=== PATIENT | female | born 1965 ===

== ENCOUNTER 2017-07-05 15:54 | Emergency (ER) | payer MEDICAID ==
[2017-07-05 16:04] VITALS: BP 149/77; PULSE 110; RESP 18; TEMP 99.3; O2SAT 98
[2017-07-05] MEDS ORDERED: Naproxen 500 MG TAB PO ONE ×2 (16:14→16:19)
--- NOTE | 2017-07-05 16:33 | ED PDOC ---
Lower Extremity Pain/Injury Time Seen by Provider: 07/05/17 16:05 Chief Complaint (Nursing): Lower Extremity Problem/Injury Chief Complaint (Provider): Left Ankle Pain History Per: Patient History/Exam Limitations: no limitations Onset/Duration Of Symptoms: Hrs Current Symptoms Are (Timing): Still Present Additional Complaint(s): 51 year old female presents to the ED complaining of left ankle pain. The patient states that earlier today she tripped and fell injuring her ankle and the pain has persisted since then. - Ankle/Foot Description Of Injury: Fell Past Medical History Reviewed: Historical Data, Nursing Documentation, Vital Signs Vital Signs: Last Vital Signs Temp 99.3 F 07/05/17 16:00 Pulse 110 H 07/05/17 16:00 Resp 18 07/05/17 16:00 BP 149/77 07/05/17 16:00 Pulse Ox 98 07/05/17 16:00 - Medical History PMH: Anxiety, Arthritis, Back Problems, Depression, Gastritis, HTN, Hypercholesterolemia - Surgical History Surgical History: Back Surgery (x3), Cholecystectomy, - Family History Family History: States: Unknown Family Hx - Living Arrangements Living Arrangements: With Family - Social History Current smoker - smoking cessation education provided: No Ex-Smoker (has not smoked in the last 12 months): No Alcohol: None Drugs: Denies - Immunization History Hx Tetanus Toxoid Vaccination: Yes Hx Influenza Vaccination: No Hx Pneumococcal Vaccination: No - Home Medications Home Medications: Ambulatory Orders Medication Instructions Recorded Aspirin [Ecotrin] 81 mg PO DAILY 12/02/15 ALPRAZolam [Xanax] 1 tab PO PRN PRN 12/27/15 Valsartan [Diovan] 1 tab PO DAILY 12/27/15 Cephalexin [Keflex] 500 mg PO BID #14 capsule 01/12/17 Naproxen [Naprosyn Tab] 375 mg PO BID PRN #20 tab 01/12/17 Omeprazole 1 tab PO DAILY 01/12/17 Paroxetine HCl [Paxil] 1 tab PO DAILY 01/12/17 Sulfamethoxazole/Trimethoprim 1 tab PO BID #14 tab 01/12/17 [Bactrim DS 800 mg-160 mg] - Allergies Allergies/Adverse Reactions: Allergies Allergy/AdvReac Type Severity Reaction Status Date / Time No Known Allergies Allergy Verified 01/12/17 13:24 Review of Systems Musculoskeletal: Positive for: Other (left ankle pain) Physical Exam - Reviewed Nursing Documentation Reviewed: Yes Vital Signs Reviewed: Yes - Physical Exam Appears: Positive for: Non-toxic, No Acute Distress Skin: Positive for: Normal Color, Warm, Dry. Negative for: Rash Pulses-Dorsalis Pedis (L): 2+ Pulses-Dorsalis Pedis (R): 2+ Extremity: Positive for: Tenderness (Mild tenderness on lateral malleolus on left ankle. ), Swelling ( Mild swelling on lateral malleolus on left ankle. ). Negative for: Deformity Neurologic/Psych: Positive for: Alert, Oriented - ECG O2 Sat by Pulse Oximetry: 98 (RA) Pulse Ox Interpretation: Normal - Radiology X-Ray: Interpreted by Me (L ankle x-ray) X-Ray Interpretation: No Acute Disease - Progress ED Course And Treament: Ankle immobilized in aircast splint applied by RN. Crutches provided. Medical Decision Making Medical Decision Makin Initial Impression 51 y/o female presenting with left ankle pain Initial Plan: * Naproxen 500mg PO * RAD Ankle LFT 3 views * Reevaluation Documented by Idalmis Rangel acting as a scribe for Demarcus Whitley PA-C. All medical record entries made by the Scribe were at my direction and personally dictated by me. I have reviewed the chart and agree that the record accurately reflects my personal performance of the history, physical exam, medical decision making, and the department course for this patient. I have also personally directed, reviewed, and agree with the discharge instructions and disposition. Disposition - Clinical Impression Clinical Impression: Ankle injury - Patient ED Disposition Is Patient to be Admitted: No - Disposition Referrals: Podiatry Clinic [Outside] Disposition: Routine/Home Disposition Time: 16:46 Condition: STABLE Instructions: Ankle Sprain (ED), Crutch Instructions (ED), Ankle Stirrup Splint (ED) Forms: [employer] (And[place]ran) Print Language: TAMAZIGHT
--- NOTE | 2017-07-05 17:07 | RAD ---
PROCEDURE: Left Ankle Radiographs. HISTORY: trauma COMPARISON: None FINDINGS: BONES: No acute fracture. JOINTS: Ankle mortise maintained. Talar dome intact SOFT TISSUES: Lateral malleolar soft tissue swelling. OTHER FINDINGS: Small ankle joint effusion. IMPRESSION: Lateral malleolar soft tissue swelling and small ankle joint effusion without demonstrated fracture or dislocation.
== END 2017-07-05 17:30 | disposition home or self-care (01) ==
LOC: H.ER 15:54
DX: S99.912A Unspecified injury of left ankle, initial encounter (principal); W01.0XXA Fall on same level from slipping, tripping and stumbling without subsequent striking against object, initial encounter; E78.00 Pure hypercholesterolemia, unspecified; I10 Essential (primary) hypertension; Z87.891 Personal history of nicotine dependence

== ENCOUNTER 2017-10-27 15:12 | Emergency (ER) | payer MEDICAID ==
[2017-10-27 15:28] VITALS: TEMP 98.1
--- NOTE | 2017-10-27 16:38 | ED PDOC ---
HPI: Hypertension/Hypotension Time Seen by Provider: 10/27/17 16:10 Chief Complaint (Nursing): Palpitations Chief Complaint (Provider): anxiety, palpitations History Per: Patient, Engineering Group Manager History/Exam Limitations: no limitations Onset/Duration Of Symptoms: Intermittent Episodes Current Symptoms Are (Timing): Intermittent Episodes Associated Symptoms: Other (heart racing). denies: Chest Pain, Dyspnea, Dizziness, Blurred Vision, Focal Weakness, Headache Quality Of Symptoms: Rapid Heart Rate Severity: Moderate Exacerbating Factor(s): Pos: None Additional Complaint(s): 52yo female presents w family member states shes been sleepless, noting anxiety and "stress", feelings of palpitations, heart racing, mostly at night. State family stressors of injury and father illness contributing. Denies chest pain, SOB, syncope, headache, orthopnea, swelling or alcohol/drug use. Past Medical History Reviewed: Historical Data, Nursing Documentation, Vital Signs Vital Signs: Last Vital Signs Temp 98.1 F 10/27/17 15:26 Pulse 79 10/27/17 15:58 Resp 18 10/27/17 15:26 BP 151/84 H 10/27/17 15:26 Pulse Ox 99 10/27/17 15:26 - Medical History PMH: Anxiety, Arthritis, Back Problems, Depression, Gastritis, HTN, Hypercholesterolemia - Surgical History Surgical History: Back Surgery (x3), Cholecystectomy, - Family History Family History: States: Unknown Family Hx - Living Arrangements Living Arrangements: With Family - Social History Current smoker - smoking cessation education provided: No Alcohol: None Drugs: Denies - Immunization History Hx Tetanus Toxoid Vaccination: Yes Hx Influenza Vaccination: No Hx Pneumococcal Vaccination: No - Home Medications Home Medications: Ambulatory Orders Medication Instructions Recorded Aspirin [Ecotrin] 81 mg PO DAILY 12/02/15 ALPRAZolam [Xanax] 1 tab PO PRN PRN 12/27/15 Valsartan [Diovan] 1 tab PO DAILY 12/27/15 Cephalexin [Keflex] 500 mg PO BID #14 capsule 01/12/17 Naproxen [Naprosyn Tab] 375 mg PO BID PRN #20 tab 01/12/17 Omeprazole 1 tab PO DAILY 01/12/17 Paroxetine HCl [Paxil] 1 tab PO DAILY 01/12/17 Sulfamethoxazole/Trimethoprim 1 tab PO BID #14 tab 01/12/17 [Bactrim DS 800 mg-160 mg] ALPRAZolam [Xanax] 0.25 mg PO BID PRN #5 tab 10/27/17 - Allergies Allergies/Adverse Reactions: Allergies Allergy/AdvReac Type Severity Reaction Status Date / Time No Known Allergies Allergy Verified 01/12/17 13:24 Review of Systems ROS Statement: Except As Marked, All Systems Reviewed And Found Negative Constitutional: Negative for: Fever, Sweats Cardiovascular: Positive for: Palpitations. Negative for: Chest Pain, Orthopnea , Paroxysmal Noc. Dyspnea Respiratory: Negative for: Cough Gastrointestinal: Negative for: Nausea, Abdominal Pain Genitourinary Female: Negative for: Dysuria Musculoskeletal: Negative for: Neck Pain Skin: Negative for: Rash Neurological: Negative for: Weakness, Numbness, Seizures, Headache, Dizziness Psych: Negative for: Anxiety Physical Exam - Reviewed Nursing Documentation Reviewed: Yes Vital Signs Reviewed: Yes - Physical Exam Appears: Positive for: Well, Non-toxic, No Acute Distress Head Exam: Positive for: ATRAUMATIC, NORMAL INSPECTION, NORMOCEPHALIC Skin: Positive for: Normal Color, Warm, DRY Eye Exam: Positive for: EOMI, Normal appearance, PERRL ENT: Positive for: Normal ENT Inspection Neck: Positive for: Normal, Painless ROM Cardiovascular/Chest: Positive for: Regular Rate, Rhythm Respiratory: Positive for: CNT, Normal Breath Sounds Gastrointestinal/Abdominal: Positive for: Normal Exam, Soft. Negative for: Tenderness Back: Positive for: Normal Inspection Extremity: Positive for: Normal ROM Neurologic/Psych: Positive for: Alert, Oriented, Mood/Affect (anxious). Negative for: Motor/Sensory Deficits, Facial Droop - Laboratory Results Result Diagrams: 10/27/17 18:19 10/27/17 17:22 - ECG ECG: Positive for: Interpreted By Me ECG Rhythm: Positive for: Normal QRS, Normal ST Segment, Sinus Rhythm. Negative for: ST/T Changes Rate: 80 O2 Sat by Pulse Oximetry: 99 Pulse Ox Interpretation: Normal Medical Decision Making Medical Decision Making: workup for palpitations possible anxiety related initiated EKG reviewed crisis eval and basic bloodwork ordered labs unremarkable remained in sinus rhythm DC from ED, Rx xanax provided for rescue therapy, encourage followup therapist/ PMD Return to ER for any worse or new symptoms Explained results in palestinian via delisa [employer] public services assistant Disposition - Clinical Impression Clinical Impression: Palpitations, Anxiety - Patient ED Disposition Is Patient to be Admitted: No Counseled Patient/Family Regarding: Studies Performed, Diagnosis, Need For Followup - Disposition Disposition: Routine/Home Disposition Time: 19:30 Condition: STABLE Additional Instructions: Followup with PMD in 2-3 days for re-evaluation and further testing. Prescriptions: ALPRAZolam [Xanax] 0.25 mg PO BID PRN #5 tab PRN Reason: Anxiety Instructions: Anxiety, Adult (DC), Palpitations (DC) Forms: [employer] ([place] Islander) Print Language: INDIAN
[2017-10-27 17:34] LABS: SQUAMOUS EPITHIAL 4 /hpf (0-5); URINE BILIRUBIN NEGATIVE (NEGATIVE); URINE BLOOD NEGATIVE (NEGATIVE); URINE CLARITY SLIGHTY-CLOUDY (Clear); URINE COLOR YELLOW (YELLOW); URINE GLUCOSE (UA) NEG (Normal); URINE LEUKOCYTE ESTERASE SMALL Leu/uL (Negative); URINE PROTEIN NEGATIVE (NEGATIVE); URINE UROBILINOGEN 0.2-1.0 mg/dL (0.2-1.0)
[2017-10-27 17:42] LABS: PROTHROMBIN TIME 10.6 Seconds (9.8-13.1)
[2017-10-27 17:43] LABS: PARTIAL THROMBOPLASTIN TIME 29.3 Seconds (25.6-37.1)
[2017-10-27 17:45] LABS: ALB/GLOB RATIO 1.2 (1.0-2.1); ALBUMIN 4.5 g/dL (3.5-5.0); ALT/SGPT 48 U/L (9-52); AST/SGOT 30 U/L (14-36); BLOOD UREA NITROGEN 11 mg/dl (7-17); CALCIUM 10.3 mg/dL (8.4-10.2); GFR AFRICAN-AMERICAN > 60; GFR NON-AFRICAN AMERICAN > 60
[2017-10-27] MEDS ORDERED: Potassium Chloride 20 mEq ER Tab PO ONE ×2 (18:05→18:13)
--- NOTE | 2017-10-27 18:17 | RAD ---
HISTORY: palpitations COMPARISON: No prior. TECHNIQUE: Chest PA and lateral FINDINGS: LUNGS: No active pulmonary disease. PLEURA: No significant pleural effusion identified. No pneumothorax apparent. CARDIOVASCULAR: Normal. OSSEOUS STRUCTURES: No significant abnormalities. VISUALIZED UPPER ABDOMEN: Normal. OTHER FINDINGS: None. IMPRESSION: No active disease.
[2017-10-27 18:29] LABS: BASO # 0.1 K/uL (0.0-0.2); BASO % 0.5 % (0.0-2.0); EOS % 0.4 % (0.0-4.0); HEMOGLOBIN 13.5 g/dL (12.0-16.0); LYMPH # 1.8 K/uL (1.0-4.3); LYMPH % 16.3 % (20.0-40.0); MEAN CELL VOLUME 93.2 fl (81.0-99.0); MEAN CORPUSCULAR HEMOGLOBIN 31.3 pg (27.0-31.0); MEAN CORPUSCULAR HGB CONC 33.5 g/dL (33.0-37.0); MEAN PLATELET VOLUME 9.7 fl (7.2-11.7); MONO # 0.6 K/uL (0.0-0.8); MONO % 5.3 % (0.0-10.0); NEUT # 8.7 K/uL (1.8-7.0); NEUT % 77.5 % (50.0-75.0); RBC 4.33 Mil/uL (3.80-5.20); RED CELL DISTRIBUTION WIDTH 13.7 % (11.5-14.5); WHITE BLOOD COUNT 11.2 K/uL (4.8-10.8)
[2017-10-27 19:52] VITALS: BP 136/77; RESP 20
--- NOTE | 2017-10-28 17:23 | CARD ---
APPROVED REPORT EKG Measurement Heart [id number] <Conclusion> Normal sinus rhythm Normal ECG
[2017-11-04 10:03] VITALS: PULSE 80; O2SAT 99
== END 2017-10-27 19:51 | disposition home or self-care (01) ==
LOC: H.ER 15:12
DX: R00.2 Palpitations (principal); F41.9 Anxiety disorder, unspecified